=== PATIENT | female | born 1935 | race Caucasian/White ===

== ENCOUNTER → 2017-01-26 | Outpatient (CLI) | payer OTHER ==
[~2017-01-26] MED LIST: IOPAMIDOL (ISOVUE-300) 100 ML BTL IV ONE
== END ==
LOC: FIMAGING 14:08
PROVIDERS: ATTEND Psychiatry & Neurology Neurology
DX: R41.3 Other amnesia (principal)
CPT/HCPCS: 70470; Q9967

== ENCOUNTER 2017-12-18 11:28 | Emergency (ER) | payer OTHER ==
--- NOTE | 2017-12-18 12:17 | EDPHY ---
H & P Time Seen by Provider: 12/18/17 11:32 HPI/ROS: Chief complaint. Fall HPI. Patient is an 82-year-old female with history of dementia. She was in the care of 1 of her caregivers when she fell in the bathroom. She did hit her head and unclear loss of consciousness. She also injured her left elbow. Patient does not recall the events. The caregiver is not here. The had left for a short while to go to the [facility]. Unclear whether the patient has neck pain or not. ROS Constitutional. no fever/chills, no weakness Eyes. no problems with vision ENT. Hit head Cardiovascular. no chest pain Respiratory. no shortness of breath, no cough Abdominal. no abdominal pain, no nausea/vomiting, no diarrhea . no problems urinating MS. Left elbow pain Skin. no rash Lymph. no swollen glands Neuro. Dementia Past Medical/Surgical History: Dementia, hypothyroid Social History: , nonsmoker, no alcohol Smoking Status: Never smoked Physical Exam: General Appearance: Alert well-developed female confused mild distress. Vital signs stable Eyes: Pupils equal and round no pallor or injection. ENT, swelling to the left side of her head. No hemotympanum or Jovel sign. No oral or dental trauma Respiratory: There are no retractions, lungs are clear to auscultation. Cardiovascular: Regular rate and rhythm. Gastrointestinal: Abdomen is soft and nontender, no masses, bowel sounds normal. Neurological: Awake and alert, sensory and motor exams grossly normal. Skin: Abrasion left elbow Musculoskeletal: Neck is supple nontender. Extremities symmetrical, full range of motion. Psychiatric: Oriented to person Constitutional: Initial Vital Signs Temperature (C) 36.5 C 12/18/17 11:28 Heart Rate 105 H 12/18/17 11:28 Respiratory Rate 20 12/18/17 11:28 Blood Pressure 133/78 H 12/18/17 11:28 O2 Sat (%) 90 L 12/18/17 11:28 O2 Delivery Mode Room Air Allergies/Adverse Reactions: Sulfa (Sulfonamide Antibiotics) Allergy (Verified 12/18/17 11:48) Home Medications: Medication Instructions Recorded Levothyroxine 12/18/17 Seroquel 12/18/17 Medical Decision Making - Diagnostics Imaging Results: Imaging Impressions Cervical Spine CT 12/18/17 12:17 Impression: 1. No acute osseous abnormality seen about the cervical spine. 2. Moderate facet hypertrophy mid to lower cervical spine along with degenerative disk disease as detailed above with associated neuroforaminal stenoses. Findings discussed with Aron Marques M.D. at 13:30 hour, 12/18/2017. Head CT 12/18/17 12:17 Impression: 1. Stable moderate to marked atrophy. 2. No hemorrhage, mass effect, or definite acute peripheral infarct. 3. Stable moderate nonspecific hypodensities in the white matter of bilateral cerebral hemispheres. Differential diagnosis includes microvascular ischemic disease, post-infectious/post-inflammatory sequela, atypical demyelinating disease, or migraine-related sequela. Small white matter lacunar infarcts may also have this appearance. Findings discussed with Aron Marques M.D. at 13:25 hour, 12/18/2017. If symptoms worsen, additional imaging may be necessary. Elbow X-Ray 12/18/17 12:18 Impression: Nothing acute identified. If clinically indicated consider repeating the x-ray series without overlying artifact. 2. AP Pelvis History: Left hip pain post fall Findings: Artifact from overlying sheet material overlies the pelvis and hips. No fracture or malalignment is identified. The hip joints, pubic symphysis and SI joints are normally aligned. Impression: Negative. If clinically indicated consider repeat exam without overlying artifact. Pelvis X-Ray 12/18/17 12:18 Impression: Nothing acute identified. If clinically indicated consider repeating the x-ray series without overlying artifact. 2. AP Pelvis History: Left hip pain post fall Findings: Artifact from overlying sheet material overlies the pelvis and hips. No fracture or malalignment is identified. The hip joints, pubic symphysis and SI joints are normally aligned. Impression: Negative. If clinically indicated consider repeat exam without overlying artifact. Noncontrast head and cervical spine CT reviewed by me and discussed with Dr. Pop shows no hemorrhage or skull fracture or cervical injury. X-ray left elbow and pelvis shows no hip fracture or elbow fracture or dislocation Procedures: Wounds are cleaned and dressed ED Course/Re-evaluation: Re-evaluation at 1:40 p.m.. patient and I discussed imaging study results, treatment plan including criteria for return importance of follow-up and further evaluation. They expressed understanding and agreement arrives in the emergency department for discussion Differential Diagnosis: I considered closed head injury, intracranial bleeding and skull fracture, cervical spine injury, elbow fracture dislocation. Departure - Departure Disposition: Home, Routine, Self-Care Clinical Impression: Fall Qualifiers: Encounter type: initial encounter Qualified Code(s): W19.XXXA - Unspecified fall, initial encounter Sprain of left elbow Qualifiers: Encounter type: initial encounter Qualified Code(s): S53.402A - Unspecified sprain of left elbow, initial encounter Condition: Fair Instructions: Contusion in Adults (ED) Additional Instructions: Ice to sore areas next 24 hr. Tylenol 650 mg every 6 hr as needed for discomfort. Return for worsening symptoms. Recheck in 2 days for any continuing symptoms Referrals: Patient,NotPresent [Unknown] - As per Instructions
[2017-12-18 14:06] VITALS: BP 156/80; PULSE 87; RESP 22; TEMP 98.4; O2SAT 94
== END 2017-12-18 14:21 | disposition home or self-care (01) ==
LOC: EDUNIT#
DX: S53.402A Unspecified sprain of left elbow, initial encounter (principal); W18.09XA Striking against other object with subsequent fall, initial encounter; Y92.009 Unspecified place in unspecified non-institutional (private) residence as the place of occurrence of the external cause